=== PATIENT | female | born 1950 | race Caucasian/White ===

== ENCOUNTER 2016-12-25 11:25 | Outpatient (CLI) | payer MEDICARE ==
--- NOTE | 2016-12-25 14:18 | MMO ---
BILATERAL SCREENING MAMMOGRAM: HISTORY: A 66-year-old female for screening mammography. COMPARISON: 10/18/15, 09/01/14, 08/01/13. FINDINGS: Bilateral MLO and CC views of the breasts show scattered fibroglandular breast tissue. There is an asymmetry that has developed in the upper outer aspect of the left breast since the prior mammogram. There is also an asymmetry in the inner aspect of the left breast seen only on the CT view and asy mmetry seen in the posterior central left breast on the CC view only. No suspicious cluster of micr ocalcifications or architectural distortion are seen. Interpretation of this mammogram is performed with the assistance of computer-aided detection. IMPRESSION: Multiple asymmetric densities in the left breast. BI-RADS category 0 - incomplete; need additional imaging evaluation. Additional views are recommended. If one of these asymmetries persist, then an ultrasound will also need to be performed. BIRADS 0: Incomplete: Need Additional Imaging Evaluation and/or Prior Mammograms for Comparison POS: MAGY
== END 2016-12-25 11:26 | disposition home or self-care (01) ==
LOC: MAMMO 11:25
PROVIDERS: ATTEND Family Medicine
DX: Z12.31 Encounter for screening mammogram for malignant neoplasm of breast (principal)
CPT/HCPCS: 77067; G0202

== ENCOUNTER 2016-12-29 12:50 | Outpatient (CLI) | payer MEDICARE ==
--- NOTE | 2016-12-29 15:18 | ULT ---
ULTRASOUND LEFT BREAST LIMITED: Date: 12/29/16 HISTORY: Tiny focal nodular density found on mammogram. TECHNIQUE: Focused ultrasound at the 2 o'clock position, 6 cm from the nipple, targeting the most posterior of the originally marked three tiny nodular densities on the LCC view. FINDINGS: In this location, there is a tiny, wider than tall, nonshadowing, 0.4 x 0.4 x 0.2 cm hypoechoic lesi on. There is no internal blood flow. There are intermediate internal echoes. It is too small to defi nitively characterize. It could be a cyst. However, to err on the side of caution, 6 month follow-up is recommended. This may correspond to the most posterior of the three mammographic nodules, but th is is uncertain. IMPRESSION: 1. BIRADS 3: Probably Benign Finding - Short-Interval Follow-Up Suggested 2. Recommend 6 month follow-up left mammogram and 6 month follow-up left breast ultrasound. POS: MAGY
--- NOTE | 2016-12-29 15:24 | MMO ---
MAMMOGRAM DIGITAL UNILATERAL DIAGNOSTIC LEFT: (ADDITIONAL VIEWS) Date: 12/29/16 HISTORY: 66-year-old female with three tiny nodular densities noted on screening mammogram LCC view of . The most anterior one is also visible on the LMLO view. FINDINGS: The additional views were performed. The far anterior left upper outer quadrant nodule can be seen i n retrospect on the 10/18/15 and 09/01/14 mammograms, and is stable. The other one visible at the in ner aspect of the middle depth of the LCC view, is also stable since 09/01/14. The most posterior one is located near the center of the left breast, slightly lateral to the nipple axis, approximately 8 cm from the nipple on the LCC view. It is difficult to identify with certaint y on the current true lateral view. It is confirmed on today's repeat standard LCC view, and on the mag spot compression LCC view. It is not identified on the older mammograms. On today's ultrasound, the 2 stable nodules were not evaluated, instead focusing on the most posteri joss located nodular density. The ultrasound demonstrates a tiny, 0.4 cm, heterogeneously hypoechoic structure at the 2 o'clock po sition, 6 cm from the nipple, which is too small to characterize. It does not have particularly susp icious characteristics. Serial short interval follow-ups are recommended. IMPRESSION: 1. BIRADS 3: Probably Benign Finding - Short-Interval Follow-Up Suggested 2. Recommend 6 month follow-up left mammogram and 6 month follow-up left breast ultrasound. The facility will notify the patient of the need for additional imaging services. POS: MAGY
== END 2016-12-29 12:51 | disposition home or self-care (01) ==
LOC: MAMMO 12:50
PROVIDERS: ATTEND Family Medicine
DX: R92.8 Other abnormal and inconclusive findings on diagnostic imaging of breast (principal)
CPT/HCPCS: 76642; G0206

== ENCOUNTER 2017-06-28 10:14 | Outpatient (CLI) | payer MEDICARE | END 2017-06-28 10:15 | disposition home or self-care (01) | LOC: BICMAMMO 10:14 | PROVIDERS: ATTEND Family Medicine | DX: R92.8 Other abnormal and inconclusive findings on diagnostic imaging of breast (principal) | CPT/HCPCS: 76642; 77065; G0279 ==

== ENCOUNTER 2018-01-16 13:58 | Outpatient (CLI) | payer MEDICARE ==
--- NOTE | 2018-01-16 17:14 | BD ---
DEXA SCAN: 01/16/18 INDICATION: Osteopenia. COMPARISON: Prior exam dated 07/25/13. FINDINGS: Lumbar Spine: BMD (g/cm2) T-Score Z-Score L1 1.127 1.2 2.9 L2 1.044 0.1 2.0 L3 0.945 -1.3 0.7 L4 0.982 -0.7 1.3 L1-L4 1.021 -0.2 1.6 Left Femoral Neck: 0.621 -2.1 -0.5 Left Total Femur: 0.807 -1.1 0.2 The bone mineral density of the left femoral neck region has declined 12.6% from the baseline. FRAX WHO fracture risk assessment tool estimated a ten year fracture risk for a major osteoporotic fr acture for this patient as 10% and for hip fracture and 1.5%. Impression: Based on WHO criteria, patient's bone mineral density is considered osteopenic. The patient is at mod erate risk for fracture. The bone mineralization has diminished 12.6% from the baseline dated 07/25/13 . POS: MAGY
== END 2018-01-16 13:59 | disposition home or self-care (01) ==
LOC: BICMAMMO 13:58
PROVIDERS: ATTEND Family Medicine
DX: Z13.820 Encounter for screening for osteoporosis (principal); M85.80 Other specified disorders of bone density and structure, unspecified site; Z80.3 Family history of malignant neoplasm of breast
CPT/HCPCS: 77066; 77080; G0279

== ENCOUNTER 2019-03-28 12:14 | Outpatient (CLI) | payer MEDICARE ==
--- NOTE | 2019-03-28 13:02 | MMO ---
Bilateral MAMMO Bilat Screen [facility]. CLINICAL HISTORY: Patient is 68 years old and is seen for screening. The patient has no family history of breast cancer. The patient has no personal history of cancer. The patient has a history of right Ultrasound Guided Core Biopsy in 2013 - benign. VIEWS: The views performed were: bilateral craniocaudal with tomosynthesis and bilateral mediolateral oblique with tomosynthesis. FILMS COMPARED: The present examination has been compared to prior imaging studies performed at [facility] on 06/28/2017 and 01/16/2018, and at [facility] on 12/25/2016 and 12/29/2016. This study has been interpreted with the assistance of computer-aided detection. MAMMOGRAM FINDINGS: There are scattered fibroglandular densities. Finding 1: There are stable post operative changes seen in the right breast. Finding 2: There are stable benign appearing calcifications seen in both breasts. There are no suspicious masses, suspicious calcifications, or new areas of architectural distortion. IMPRESSION: THERE IS NO MAMMOGRAPHIC EVIDENCE OF MALIGNANCY. A ROUTINE FOLLOW-UP MAMMOGRAM IN 1 YEAR IS RECOMMENDED. THE RESULTS OF THIS EXAM WERE SENT TO THE PATIENT. ACR BI-RADS Category 2 - Benign finding MAMMOGRAPHY NOTE: 1. A negative mammogram report should not delay a biopsy if a dominant of clinically suspicious mass is present. 2. Approximately 10% to 15% of breast cancers are not detected by mammography. 3. Adenosis and dense breasts may obscure an underlying neoplasm. Reported by: YECENIA VERDUGO MD Electonically Signed: [id number]
== END 2019-03-28 12:15 | disposition home or self-care (01) ==
LOC: BICMAMMO 12:14
PROVIDERS: ATTEND Family Medicine
DX: Z12.31 Encounter for screening mammogram for malignant neoplasm of breast (principal)
CPT/HCPCS: 77063; 77067

== ENCOUNTER 2020-05-13 09:07 | Outpatient (CLI) | payer MEDICARE | END 2020-05-13 09:08 | disposition home or self-care (01) | LOC: BICMAMMO 09:07 | PROVIDERS: ATTEND Physician Assistant | DX: Z12.31 Encounter for screening mammogram for malignant neoplasm of breast (principal); Z91.89 Other specified personal risk factors, not elsewhere classified | CPT/HCPCS: 77063; 77067 ==

== ENCOUNTER 2022-11-02 11:47 | Outpatient (CLI) | payer MEDICARE | END 2022-11-02 11:48 | disposition home or self-care (01) | LOC: BICMAMMO 11:47 | PROVIDERS: ATTEND Physician Assistant | DX: Z12.31 Encounter for screening mammogram for malignant neoplasm of breast (principal); Z91.89 Other specified personal risk factors, not elsewhere classified | CPT/HCPCS: 77063; 77067 ==

== ENCOUNTER 2025-01-30 11:01 | Outpatient (CLI) | payer MEDICARE | END 2025-01-30 11:02 | disposition home or self-care (01) | LOC: BICCT 11:01 | PROVIDERS: ATTEND Orthopaedic Surgery Hand Surgery | DX: S62.315D Displaced fracture of base of fourth metacarpal bone, left hand, subsequent encounter for fracture with routine healing (principal); S62.317D Displaced fracture of base of fifth metacarpal bone, left hand, subsequent encounter for fracture with routine healing; M19.031 Primary osteoarthritis, right wrist; M19.041 Primary osteoarthritis, right hand; Z98.890 Other specified postprocedural states ==